=== PATIENT | female | born 2000 | race Two or more races ===

== ENCOUNTER 2024-07-09 23:12 | Emergency (ER) | payer OTHER ==
[~2024-07-09] VITALS: Ht 167.6 cm; Wt 56.7 kg
[2024-07-09] MEDS ORDERED: TARON FORTE CA1 EACH PO (23:33)
[2024-07-09 23:34] VITALS: BP 121/75; O2SAT 100
[2024-07-10] MEDS ORDERED: MONISTAT 315 GM VAG (02:35)
[2024-07-10] MEDS ORDERED: FLUCONAZOLE150 MG PO (02:35)
== END 2024-07-10 02:40 ==
LOC: ER 23:14
DX: B37.31 Acute candidiasis of vulva and vagina (principal)